=== PATIENT | male | born 1985 | race Two or more races ===

== ENCOUNTER 2018-11-02 06:45 | Inpatient (IN) | payer OTHER | END 2018-11-04 16:58 | disposition other institution (70) | LOC: SUR 06:45 → CENTRAL 14:56 | PROC: 0FT44ZZ Resection of Gallbladder, Percutaneous Endoscopic Approach (ICD-10-PCS; principal; 2018-11-02 10:00) | DX: K80.10 Calculus of gallbladder with chronic cholecystitis without obstruction (principal) ==